=== PATIENT | female | born 1955 | race Caucasian/White ===

== ENCOUNTER 2017-12-28 12:29 | Observation (INO) | payer OTHER ==
[2017-12-28] VITALS (8 sets, daily range): BP systolic 106–146; BP diastolic 58–79; PULSE 66–100; RESP 16–60; TEMP 98–98.6; O2SAT 94–100
[~2017-12-28] VITALS: Ht 167.6 cm; Wt 105.0 kg
[~2017-12-28 12:29] MED LIST: GLUCTAB OR; LOVA1TAB47 PO; PRED20 PO; TRAD5TAB OR
[2017-12-28] MEDS ORDERED: SODIUM CHLORIDE 0.9% FLUSH 10 ML FLUSH IVF PRN (12:45)
[2017-12-28] MEDS ORDERED: ASPIRIN 81 MG CHEW TAB PO ONE (12:45)
[2017-12-28] MEDS ORDERED: GLIM1TAB PO (12:46)
[2017-12-28] MEDS ORDERED: ALPR0.5T3 PO (12:46)
[2017-12-28] MEDS ORDERED: EMPA1TAB PO (12:46)
[2017-12-28] MEDS ORDERED: METF500T PO (12:46)
[2017-12-28] MEDS ORDERED: ATOR10TA15 PO (12:46)
--- NOTE | 2017-12-28 12:51 | PD ---
HPI Chief Complaint: Chest Pain Time Seen by Provider: 12:40 Travel History International Travel<30 days: No Contact w/Intl Traveler<30days: No Traveled to known affect area: No History of Present Illness HPI 62-year-old female with history of hypertension and diabetes presents to the emergency department for evaluation of a chest tightness discomfort with associated left arm numbness and tingling. Patient states yesterday she was feeling weak. She was not quite feeling like she had as much energy as she usually does. She told me her blood pressure was running lower than typical. This seemed to resolve and she felt better. She went to work. This morning she woke up and went to work. Her blood pressure was normal. While at work she began having a chest discomfort with some left upper extremity tingling. She states now the left upper extremity feels more numb and heavy when the pressure occurs. She has no significant cardiac history that she recalls. She states there is mild shortness of breath associated with it. Last evening she was having episodes of diaphoresis. She has not been nauseous or vomiting. She has not been recently ill. She has no other symptoms to report. ON LICENSE OF [facility] Past Medical History High Cholesterol: Yes (borderline per the pt) Diabetes: Yes Patient Takes Glucophage: Yes Hypertension: Yes Influenza Vaccination: No Past Surgical History Appendectomy: Yes Social History Alcohol Use: No Tobacco Use: No Substance Use: No Allergies-Medications (Allergen,Severity, Reaction): Coded Allergies: No Known Allergies (Unverified , 09/22/12) Reported Meds & Prescriptions Reported Meds & Active Scripts Active Reported Alprazolam 0.5 Mg Tab 0.5 Mg PO HS PRN Jardiance (Empagliflozin) 10 Mg Tab 10 Mg PO DAILY Glimepiride 1 Mg Tab 1 Mg PO DAILY Take with breakfast or first main meal Atorvastatin (Atorvastatin Calcium) 10 Mg Tab 10 Mg PO Metformin (Metformin HCl) 500 Mg Tab 500 Mg PO BID With a meal Review of Systems Except as stated in HPI: all other systems reviewed are Neg Physical Exam Narrative GENERAL: Well-nourished female patient, ambulatory and in no acute distress SKIN: Focused skin assessment warm/dry. HEAD: Atraumatic. Normocephalic. EYES: Pupils equal and round. No scleral icterus. No injection or drainage. ENT: No nasal bleeding or discharge. Mucous membranes pink and moist. NECK: Trachea midline. No JVD. CARDIOVASCULAR: Regular rate and rhythm. RESPIRATORY: No accessory muscle use. Diminished bilateral bases, likely due to girth. Breath sounds equal bilaterally. GASTROINTESTINAL: Abdomen soft, non-tender, nondistended. Hepatic and splenic margins not palpable. MUSCULOSKELETAL: No obvious deformities. No clubbing. No cyanosis. No edema. NEUROLOGICAL: Awake and alert. No obvious cranial nerve deficits. Motor grossly within normal limits. Normal speech. PSYCHIATRIC: Appropriate mood and affect; insight and judgment normal. Data Data Last Documented VS Vital Signs Date Time Temp Pulse Resp B/P (MAP) Pulse Ox O2 Delivery O2 Flow Rate FiO2 12/28/17 13:22 100 16 137/63 (87) 100 Room Air 12/28/17 12:33 98.6 Orders Orders Electrocardiogram (12/28/17 12:44) Basic Metabolic Panel (Bmp) (12/28/17 12:44) Ckmb (Isoenzyme) Profile (12/28/17 12:44) Complete Blood Count With Diff (12/28/17 12:44) Magnesium (Mg) (12/28/17 12:44) Prothrombin Time / Inr (Pt) (12/28/17 12:44) Act Partial Throm Time (Ptt) (12/28/17 12:44) Troponin I (12/28/17 12:44) Chest, Single Ap (12/28/17 12:44) Ecg Monitoring (12/28/17 12:44) Bilateral Bp Monitoring (12/28/17 12:44) Iv Access Insert/Monitor (12/28/17 12:44) Oximetry (12/28/17 12:44) Oxygen Administration (12/28/17 12:44) Aspirin Chew (Aspirin Chew) (12/28/17 12:45) Sodium Chloride 0.9% Flush (Ns Flush) (12/28/17 12:45) Nitroglycerin Sl (Nitrostat Sl) (12/28/17 12:45) CKMB (12/28/17 12:55) CKMB% (12/28/17 12:55) Labs Laboratory Tests Test 12/28/17 12:55 White Blood Count 9.6 TH/MM3 Red Blood Count 5.18 MIL/MM3 Hemoglobin 16.5 GM/DL Hematocrit 48.2 % Mean Corpuscular Volume 93.2 FL Mean Corpuscular Hemoglobin 31.8 PG Mean Corpuscular Hemoglobin Concent 34.1 % Red Cell Distribution Width 12.9 % Platelet Count 272 TH/MM3 Mean Platelet Volume 8.4 FL Neutrophils (%) (Auto) 66.5 % Lymphocytes (%) (Auto) 22.9 % Monocytes (%) (Auto) 6.6 % Eosinophils (%) (Auto) 3.2 % Basophils (%) (Auto) 0.8 % Neutrophils # (Auto) 6.4 TH/MM3 Lymphocytes # (Auto) 2.2 TH/MM3 Monocytes # (Auto) 0.6 TH/MM3 Eosinophils # (Auto) 0.3 TH/MM3 Basophils # (Auto) 0.1 TH/MM3 CBC Comment DIFF FINAL Differential Comment Prothrombin Time 9.9 SEC Prothromb Time International Ratio 1.0 RATIO Activated Partial Thromboplast Time 25.9 SEC Blood Urea Nitrogen 23 MG/DL Creatinine 1.29 MG/DL Random Glucose 194 MG/DL Calcium Level 10.2 MG/DL Magnesium Level 1.9 MG/DL Sodium Level 139 MEQ/L Potassium Level 4.3 MEQ/L Chloride Level 103 MEQ/L Carbon Dioxide Level 25.2 MEQ/L Anion Gap 11 MEQ/L Estimat Glomerular Filtration Rate 42 ML/MIN Total Creatine Kinase 111 U/L Creatine Kinase MB 3.3 NG/ML Troponin I LESS THAN 0.02 NG/ML MDM Medical Decision Making Medical Screen Exam Complete: Yes Emergency Medical Condition: Yes Medical Record Reviewed: Yes Differential Diagnosis ACS versus anxiety versus chest wall pain versus pleuritic pain versus bronchospasm Narrative Course 62-year-old female presents emergency department for evaluation of a chest discomfort/tightness with associated shortness of breath and left upper extremity tingling. Patient appears nontoxic. She appears without distress. Her vital signs are stable. EKG is reviewed by my attending physician without any acute ST elevation or depression. Laboratory Tests Test 12/28/17 12:55 White Blood Count 9.6 TH/MM3 Red Blood Count 5.18 MIL/MM3 Hemoglobin 16.5 GM/DL Hematocrit 48.2 % Mean Corpuscular Volume 93.2 FL Mean Corpuscular Hemoglobin 31.8 PG Mean Corpuscular Hemoglobin Concent 34.1 % Red Cell Distribution Width 12.9 % Platelet Count 272 TH/MM3 Mean Platelet Volume 8.4 FL Neutrophils (%) (Auto) 66.5 % Lymphocytes (%) (Auto) 22.9 % Monocytes (%) (Auto) 6.6 % Eosinophils (%) (Auto) 3.2 % Basophils (%) (Auto) 0.8 % Neutrophils # (Auto) 6.4 TH/MM3 Lymphocytes # (Auto) 2.2 TH/MM3 Monocytes # (Auto) 0.6 TH/MM3 Eosinophils # (Auto) 0.3 TH/MM3 Basophils # (Auto) 0.1 TH/MM3 CBC Comment DIFF FINAL Differential Comment Prothrombin Time 9.9 SEC Prothromb Time International Ratio 1.0 RATIO Activated Partial Thromboplast Time 25.9 SEC Blood Urea Nitrogen 23 MG/DL Creatinine 1.29 MG/DL Random Glucose 194 MG/DL Calcium Level 10.2 MG/DL Magnesium Level 1.9 MG/DL Sodium Level 139 MEQ/L Potassium Level 4.3 MEQ/L Chloride Level 103 MEQ/L Carbon Dioxide Level 25.2 MEQ/L Anion Gap 11 MEQ/L Estimat Glomerular Filtration Rate 42 ML/MIN Total Creatine Kinase 111 U/L Creatine Kinase MB 3.3 NG/ML Troponin I LESS THAN 0.02 NG/ML Last Impressions Chest X-Ray 12/28/17 1244 Signed Impressions: Service Date/Time: Thursday, December 28, 2017 13:35 - CONCLUSION: 1. No acute cardiopulmonary disease. Jay Yañez MD Findings are reviewed and discussed with my attending physician. We feel it is in the patient's best interest to be admitted observation to the chest pain center. Plan was discussed with the patient. She is in agreement with this plan of care. Diagnosis Primary Impression: Chest discomfort Admitting Information Admitting Physician Requests: Observation Condition: Stable Radha Lubin December 28, 2017 12:51
[2017-12-28] MEDS: NITROGLYCERIN 0.4 MG SL 25 TABS/BTL SL SCH ×3 (13:01→13:23)
[2017-12-28 13:20] LABS: AUTOMATED NEUTROPHIL # 6.4 TH/MM3 (1.8-7.7); BASOPHIL # 0.1 TH/MM3 (0-0.2); BASOPHIL % 0.8 % (0.0-2.0); EOSINOPHIL # 0.3 TH/MM3 (0-0.4); EOSINOPHIL % 3.2 % (0.0-4.0); HEMATOCRIT 48.2 % (35.0-46.0); HEMOGLOBIN 16.5 GM/DL (11.6-15.3); LYMPH % 22.9 % (9.0-44.0); LYMPHOCYTE # 2.2 TH/MM3 (1.0-4.8); MEAN CELL VOLUME 93.2 FL (80.0-100.0); MEAN CORPUSCULAR HEMOGLOBIN 31.8 PG (27.0-34.0); MEAN CORPUSCULAR HGB CONC 34.1 % (32.0-36.0); MEAN PLATELET VOLUME 8.4 FL (7.0-11.0); MONO % 6.6 % (0.0-8.0); MONOCYTE # 0.6 TH/MM3 (0-0.9); NEUT % 66.5 % (16.0-70.0); PLATELET COUNT 272 TH/MM3 (150-450); RED BLOOD COUNT 5.18 MIL/MM3 (4.00-5.30); RED CELL DISTRIBUTION WIDTH 12.9 % (11.6-17.2); WHITE BLOOD COUNT 9.6 TH/MM3 (4.0-11.0)
[2017-12-28 13:33] LABS: PROTHROMBIN TIME - PATIENT 9.9 SEC (9.8-11.6)
[2017-12-28 13:48] LABS: TROPONIN I LESS THAN 0.02 NG/ML (0.02-0.05)
[2017-12-28 14:09] LABS: BICARBONATE 25.2 MEQ/L (21.0-32.0); BLOOD UREA NITROGEN 23 MG/DL (7-18); CALCIUM 10.2 MG/DL (8.5-10.1); CHLORIDE 103 MEQ/L (98-107); CREATININE 1.29 MG/DL (0.50-1.00); GLOMERULAR FILTRATION RATE 42 ML/MIN (>89); GLUCOSE,RANDOM 194 MG/DL (74-106); MAGNESIUM 1.9 MG/DL (1.5-2.5); SODIUM (NA) 139 MEQ/L (136-145)
--- NOTE | 2017-12-28 14:17 | RADRPT ---
EXAM DATE/TIME: 12/28/2017 13:35 [facility] COMPARISON: No previous studies available for comparison. INDICATIONS : Chest pain and tightness. MEDICAL HISTORY : Hypertension. Diabetes. SURGICAL HISTORY : Total Knee. ENCOUNTER: Initial ACUITY: 1 day PAIN SCORE: 5/10 LOCATION: Bilateral chest FINDINGS: A single view of the chest demonstrates the lungs to be symmetrically aerated without evidence of mas s, infiltrate or effusion. The cardiomediastinal contours are unremarkable. Osseous structures are intact. CONCLUSION: 1. No acute cardiopulmonary disease. Jay Yañez MD on December 28, 2017 at 14:14 Board Certified Radiologist. This report was verified electronically.
[2017-12-28] MEDS ORDERED: NITROGLYCERIN 0.4 MG SL 25 TABS/BTL SL PRN (15:00)
[2017-12-28] MEDS ORDERED: ACETAMINOPHEN 500 MG CPLT PO PRN (15:00)
[2017-12-28] MEDS ORDERED: ONDANSETRON ODT 4 MG TAB PO PRN (15:00)
--- NOTE | 2017-12-28 16:08 | HHI.HP ---
HPI Primary Care Physician Diomedes Hamm M.D. Chief Complaint Chest tightness History of Present Illness 62-year-old female with history of type 2 diabetes and hypertension presents emergency room for further evaluation of nonexertional chest tightness. Onset last 3-4 weeks, seems to be increasing in intensity and frequency. Most recent episode midmorning. Location left anterior chest. Characterized as tightness. No radiation. Moderate in severity. No associated symptoms of nausea, vomiting , or diaphoresis. Endorses "shallow breathing" due to taking deep breath made pain worse. Today's chest tightness duration one hour, reporting other episodes sometimes last 3-4 hours. No known precipitating or relieving factors. Denies similar pain in the past. Due to severity of today's episode, called her insurance RN community support professional for advice and was directed to go to ER. Currently chest pain free. Given total 3 doses of Nitro SL in ER. First nitro "eased off discomfort almost completely." Given total of 3 dosing reporting 15 minutes after last nitro given chest tightness resolved, denying immediate relief. Review of Systems General: No fatigue,weakness, fever, chills, recent illness, or change in appetite. Has been her general state of health. HEENT: No PIERRE, no vision changes, no nasal congestion or drainage, no dysphasia or history of GERD CV: As stated above. No current chest tightness. RESP: No SOB, cough, wheeze, or history of asthma GI: No nausea, vomiting, bowel changes, diarrhea, constipation, pain, distention , melena, or blood in the stool. : No dysuria, urgency, frequency, frequent UTIs, or history of kidney stones EXT: No lower leg edema, no paraesthesias MS: Chronic hip pain, stable and change, no recent injury, or change in ROM NEURO: No change in memory, dizziness, difficulty with balance, LOC, motor/ sensory deficits PSYCH: No anxiety or depression. Increased situational stress, owns her own business. SKIN: No rashes, no concerning lesions Past Family Social History Allergies: Coded Allergies: No Known Allergies (Unverified Allergy, Unknown, 12/28/17) Past Medical History Type 2 diabetes, hypertension Past Surgical History Appendectomy, right knee surgery Reported Medications Reported Meds & Active Scripts Active Reported Alprazolam 0.5 Mg Tab 0.5 Mg PO HS PRN Jardiance (Empagliflozin) 10 Mg Tab 10 Mg PO DAILY Glimepiride 1 Mg Tab 1 Mg PO DAILY Take with breakfast or first main meal Atorvastatin (Atorvastatin Calcium) 10 Mg Tab 10 Mg PO Metformin (Metformin HCl) 500 Mg Tab 500 Mg PO BID With a meal Active Ordered Medications Current Medications Medications (Trade) Dose Ordered Sig/Rony Route Start Time Stop Time Status Last Admin (NS Flush) 2 ml UNSCH PRN IVF 12/28/17 12:45 (NS Flush) 2 ml BID IV FLUSH 12/28/17 21:00 (Tylenol) 500 mg Q4H PRN PO 12/28/17 15:00 (Zofran Odt) 4 mg Q6H PRN PO 12/28/17 15:00 (Nitrostat Sl) 0.4 mg Q5M PRN SL 12/28/17 15:00 (Aspirin) 325 mg DAILY PO 12/29/17 09:00 Family History Father diagnoses with CAD in late 50s, required CABG in 60s. Mother from Autumn Gehrig's disease age 52. Sister ulcerative colitis. 3 brothers, one brother had a MD age 73. Social History Known diabetes and hypertension. Appropriately taking statin therapy for diagnosis of diabetes. No known coronary artery disease. Lifelong non-smoker. Denies any alcohol use. . 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 Past Cardiac testing None Physical Exam Vital Signs Vital Signs Date Time Temp Pulse Resp B/P (MAP) Pulse Ox O2 Delivery O2 Flow Rate FiO2 12/28/17 13:22 100 16 137/63 (87) 100 Room Air 12/28/17 13:10 17 12/28/17 12:52 97 17 146/76 (99) 97 Room Air 137/79 (98) 12/28/17 12:33 98.6 95 16 129/70 (89) 96 Physical Exam GENERAL: Alert WN, WD, NAD, pleasant, obese, elderly female HEAD: NC, AT EYES: Sclera clear, conjunctiva without injection, pupils equal and round ENT: Mucous membranes pink and moist CV: RRR, without murmur, rub, gallop, no JVD, S1-S2 no S3-S4. No carotid bruits. Chest wall nontender with palpation. RESP: Clear lungs throughout bilateral, no crackles, wheeze, rhonchi, symmetrical chest rise, nonlabored, able to speak in full sentences ABD: Soft, NT, ND, no masses, positive bowel tones EXT: Pulses +2x4, no dependent edema MS: Normal tone -4 extremities, nontender, no obvious deformities, full range of motion NEURO: CN II through CN XII grossly intact, motor strength 5/5 PSYCH: A+O x3, pleasant affect, appropriate speech, mood, insight and judgment SKIN: Normal turgor, normal texture, no lesions, no rashes, brisk cap refill, even hair distribution Laboratory Laboratory Tests Test 12/28/17 12:55 White Blood Count 9.6 Red Blood Count 5.18 Hemoglobin 16.5 Hematocrit 48.2 Mean Corpuscular Volume 93.2 Mean Corpuscular Hemoglobin 31.8 Mean Corpuscular Hemoglobin Concent 34.1 Red Cell Distribution Width 12.9 Platelet Count 272 Mean Platelet Volume 8.4 Neutrophils (%) (Auto) 66.5 Lymphocytes (%) (Auto) 22.9 Monocytes (%) (Auto) 6.6 Eosinophils (%) (Auto) 3.2 Basophils (%) (Auto) 0.8 Neutrophils # (Auto) 6.4 Lymphocytes # (Auto) 2.2 Monocytes # (Auto) 0.6 Eosinophils # (Auto) 0.3 Basophils # (Auto) 0.1 CBC Comment DIFF FINAL Differential Comment Prothrombin Time 9.9 Prothromb Time International Ratio 1.0 Activated Partial Thromboplast Time 25.9 Blood Urea Nitrogen 23 Creatinine 1.29 Random Glucose 194 Calcium Level 10.2 Magnesium Level 1.9 Sodium Level 139 Potassium Level 4.3 Chloride Level 103 Carbon Dioxide Level 25.2 Anion Gap 11 Estimat Glomerular Filtration Rate 42 Total Creatine Kinase 111 Creatine Kinase MB 3.3 Troponin I LESS THAN 0.02 Result Diagram: 12/28/17 1255 12/28/17 1255 Imaging Last 48 hours Impressions Chest X-Ray 12/28/17 1244 Signed Impressions: Service Date/Time: Thursday, December 28, 2017 13:35 - CONCLUSION: 1. No acute cardiopulmonary disease. Jay Yañez MD Course EKG Normal sinus rhythm, no ST-T segment changes Caprini VTE Risk Assessment Caprini VTE Risk Assessment: Mod/High Risk (score >= 2) Caprini Risk Assessment Model Point Value = 1 Point Value = 2 Point Value = 3 Point Value = 5 Age 41-60 Minor surgery BMI > 25 kg/m2 Swollen legs Varicose veins or History of unexplained or recurrent spontaneous Oral contraceptives or hormone replacement Sepsis (< 1 month) Serious lung disease, including pneumonia (< 1 month) Abnormal pulmonary function Acute myocardial infarction Congestive heart failure (< 1 month) History of inflammatory bowel disease Medical patient at bed rest Age 61-74 Arthroscopic surgery Major open surgery (> 45 min) Laparoscopic surgery (> 45 min) Malignancy Confined to bed (> 72 hours) Immobilizing plaster cast Central venous access Age >= 75 History of VTE Family history of VTE Factor V Leiden Prothrombin [id number] Lupus anticoagulant Anticardiolipin antibodies Elevated serum homocysteine Heparin-induced thrombocytopenia Other congenital or acquired thrombophilia Stroke (< 1 month) Elective arthroplasty Hip, pelvis, or leg fracture Acute spinal cord injury (< 1 month) Prophylaxis Regimen Total Risk Factor Score Risk Level Prophylaxis Regimen 0-1 Low Early ambulation 2 Moderate Order ONE of the following: *Sequential Compression Device (SCD) *Heparin 5000 units SQ BID 3-4 Higher Order ONE of the following medications: *Heparin 5000 units SQ TID *Enoxaparin/Lovenox 40 mg SQ daily (WT < 150 kg, CrCl > 30 mL/min) *Enoxaparin/Lovenox 30 mg SQ daily (WT < 150 kg, CrCl > 10-29 mL/min) *Enoxaparin/Lovenox 30 mg SQ BID (WT < 150 kg, CrCl > 30 mL/min) AND/OR *Sequential Compression Device (SCD) 5 or more Highest Order ONE of the following medications: *Heparin 5000 units SQ TID (Preferred with Epidurals) *Enoxaparin/Lovenox 40 mg SQ daily (WT < 150 kg, CrCl > 30 mL/min) *Enoxaparin/Lovenox 30 mg SQ daily (WT < 150 kg, CrCl > 10-29 mL/min) *Enoxaparin/Lovenox 30 mg SQ BID (WT < 150 kg, CrCl > 30 mL/min) AND *Sequential Compression Device (SCD) Assessment and Plan Assessment and Plan #1 Chest pain-admitted chest pain center. Rule out ACS with 3 sets of EKGs and cardiac enzymes. Monitor on telemetry overnight. Will be seen and evaluated by Dr. Girish Arnold a.m. Further disposition to follow. Discussed cardiac stress testing tomorrow, if ACS ruled out overnight. Patient verbalized understanding and agreeable to plan of care. #2 History of type II diabetes-hold oral anti-glycemic's, SSI low dose coverage #3 History of hypertension-continue Losartan once updated in reconciled medications Esther Mota December 28, 2017 16:08
[2017-12-28] MEDS ORDERED: ALPRAZolam 0.5 MG TAB PO PRN (16:15)
[2017-12-28] MEDS ORDERED: DEXTROSE 50% IN WATER 50 ML VIAL(D50) IV PUSH PRN (16:30)
[2017-12-28] MEDS ORDERED: GLUCAGON 1 MG/ML VIAL OTHER PRN (16:30)
[2017-12-28] MEDS: INSULIN ASPART SUPPLEMENTAL SCALE SQ SCH ×2 (17:00→21:46)
[2017-12-28 17:03] LABS: TROPONIN I LESS THAN 0.02 NG/ML (0.02-0.05)
[2017-12-28] MEDS ORDERED: LOSA100T PO (17:19)
[2017-12-28 19:11] LABS: TROPONIN I LESS THAN 0.02 NG/ML (0.02-0.05)
[2017-12-28] MEDS: SODIUM CHLORIDE 0.9% FLUSH 10 ML FLUSH IV FLUSH SCH (20:30)
[2017-12-29 03:35] VITALS: BP 105/60; PULSE 68; RESP 18; TEMP 97.5; O2SAT 96
[2017-12-29 07:02] VITALS: PULSE 69
[2017-12-29 07:50] VITALS: BP 127/73; PULSE 65; RESP 20; TEMP 96.9; O2SAT 95
[2017-12-29] MEDS: INSULIN ASPART SUPPLEMENTAL SCALE SQ SCH ×2 (08:04→14:30)
--- NOTE | 2017-12-29 08:17 | PD.CARD.PN ---
Subjective Subjective Remarks No complaints, no further chest tightness episodes Objective Medications Current Medications Medications (Trade) Dose Ordered Sig/Rony Route Start Time Stop Time Status Last Admin (NS Flush) 2 ml UNSCH PRN IVF 12/28/17 12:45 (NS Flush) 2 ml BID IV FLUSH 12/28/17 21:00 (Tylenol) 500 mg Q4H PRN PO 12/28/17 15:00 (Zofran Odt) 4 mg Q6H PRN PO 12/28/17 15:00 (Nitrostat Sl) 0.4 mg Q5M PRN SL 12/28/17 15:00 (Aspirin) 325 mg DAILY PO 12/29/17 09:00 (Xanax) 0.5 mg HS PRN PO 12/28/17 16:15 (D50w (Vial) Inj) 50 ml UNSCH PRN IV PUSH 12/28/17 16:30 (Glucagon Inj) 1 mg UNSCH PRN OTHER 12/28/17 16:30 (NovoLOG SUPPLEMENTAL SCALE) 1 ACHS SLIDING SCALE SQ 12/28/17 17:00 12/29/17 08:04 (Cozaar) 100 mg DAILY PO 12/29/17 09:00 Vital Signs / I&O Vital Signs Date Time Temp Pulse Resp B/P (MAP) Pulse Ox O2 Delivery O2 Flow Rate FiO2 12/29/17 07:02 69 12/29/17 03:35 97.5 68 18 105/60 (75) 96 12/28/17 23:38 98.2 70 18 134/60 (84) 95 12/28/17 23:00 69 12/28/17 19:53 98.3 74 18 115/58 (77) 94 12/28/17 17:55 66 12/28/17 17:12 98.0 79 16 106/60 (75) 96 12/28/17 16:39 12/28/17 13:22 100 16 137/63 (87) 100 Room Air 12/28/17 13:10 17 12/28/17 12:52 97 17 146/76 (99) 97 Room Air 137/79 (98) 12/28/17 12:33 98.6 95 16 129/70 (89) 96 Physical Exam GENERAL: Alert WN, WD, NAD, pleasant, obese female HEAD: NC, AT CV: RRR, without murmur, rub, gallop, no JVD, S1-S2 no S3-S4. RESP: Clear lungs throughout bilateral, no crackles, wheeze, rhonchi, symmetrical chest rise, nonlabored, able to speak in full sentences ABD: Soft, NT, ND, no masses, positive bowel tones PSYCH: A+O x3, pleasant affect, appropriate speech, mood, insight and judgment SKIN: Normal turgor, normal texture Laboratory Laboratory Tests Test 12/28/17 12:55 12/28/17 16:00 12/28/17 18:45 White Blood Count 9.6 TH/MM3 Red Blood Count 5.18 MIL/MM3 Hemoglobin 16.5 GM/DL Hematocrit 48.2 % Mean Corpuscular Volume 93.2 FL Mean Corpuscular Hemoglobin 31.8 PG Mean Corpuscular Hemoglobin Concent 34.1 % Red Cell Distribution Width 12.9 % Platelet Count 272 TH/MM3 Mean Platelet Volume 8.4 FL Neutrophils (%) (Auto) 66.5 % Lymphocytes (%) (Auto) 22.9 % Monocytes (%) (Auto) 6.6 % Eosinophils (%) (Auto) 3.2 % Basophils (%) (Auto) 0.8 % Neutrophils # (Auto) 6.4 TH/MM3 Lymphocytes # (Auto) 2.2 TH/MM3 Monocytes # (Auto) 0.6 TH/MM3 Eosinophils # (Auto) 0.3 TH/MM3 Basophils # (Auto) 0.1 TH/MM3 CBC Comment DIFF FINAL Differential Comment Prothrombin Time 9.9 SEC Prothromb Time International Ratio 1.0 RATIO Activated Partial Thromboplast Time 25.9 SEC Blood Urea Nitrogen 23 MG/DL Creatinine 1.29 MG/DL Random Glucose 194 MG/DL Calcium Level 10.2 MG/DL Magnesium Level 1.9 MG/DL Sodium Level 139 MEQ/L Potassium Level 4.3 MEQ/L Chloride Level 103 MEQ/L Carbon Dioxide Level 25.2 MEQ/L Anion Gap 11 MEQ/L Estimat Glomerular Filtration Rate 42 ML/MIN Total Creatine Kinase 111 U/L 77 U/L 78 U/L Creatine Kinase MB 3.3 NG/ML Troponin I LESS THAN 0.02 NG/ML LESS THAN 0.02 NG/ML LESS THAN 0.02 NG/ML Imaging Last 24 hours Impressions Chest X-Ray 12/28/17 1244 Signed Impressions: Service Date/Time: Thursday, December 28, 2017 13:35 - CONCLUSION: 1. No acute cardiopulmonary disease. Jay Yañez MD Assessment and Plan Assessment and Plan #1 Chest pain-admitted chest pain center. ACS ruled out with 3 sets of EKGs and cardiac enzymes. Monitored on telemetry overnight. Seen and evaluated by Dr. Alva. Proceed with Nuclear treadmill. If unremarkable, plans to discharge home with follow up with PCP. #2 History of diabetes-continue SSI, continue home medications upon discharge Esther Mota December 29, 2017 08:17
[2017-12-29 08:42] VITALS: O2SAT 96
[2017-12-29] MEDS ORDERED: ASPIRIN 325 MG TAB PO SCH (09:00)
[2017-12-29] MEDS ORDERED: LOSARTAN 50 MG TAB PO SCH (09:00)
[2017-12-29] MEDS: SODIUM CHLORIDE 0.9% FLUSH 10 ML FLUSH IV FLUSH SCH (09:04)
--- NOTE | 2017-12-29 12:47 | EKG ---
Date Performed: 12/28/2017 Time Performed: 18:46:15 PTAGE: 62 years EKG: Sinus rhythm NORMAL ECG PREVIOUS TRACING : 12/28/2017 16.09 Since previous tracing, no significant change noted DOCTOR: Girish Alva Interpretating Date/Time 12/29/2017 12:47:04
--- NOTE | 2017-12-29 12:52 | EKG ---
Date Performed: 12/28/2017 Time Performed: 12:48:10 PTAGE: 62 years EKG: Sinus rhythm BORDERLINE LEFT AXIS DEVIATION LOW QRS VOLTAGE IN PRECORDIAL LEADS BORDERLINE ECG NO PREVIOUS TRACING DOCTOR: Girish Alva Interpretating Date/Time 12/29/2017 12:50:37
--- NOTE | 2017-12-29 12:52 | EKG ---
Date Performed: 12/28/2017 Time Performed: 16:09:47 PTAGE: 62 years EKG: Sinus rhythm LOW QRS VOLTAGE IN PRECORDIAL LEADS BORDERLINE ECG PREVIOUS TRACING : 12/28/2017 12.48 Since previous tracing, no significant change noted DOCTOR: Girish Alva Interpretating Date/Time 12/29/2017 12:49:09
--- NOTE | 2017-12-29 13:49 | RADRPT ---
EXAM DATE/TIME: 12/29/2017 10:50 [facility] COMPARISON: No previous studies available for comparison. INDICATIONS : Chest pain on and off for 3 weeks. Angina DOSE: 35.0 mCi Tc99m Myoview at stress 11.0 mCi Tc99m Myoview at rest REST HEART RATE: 89 BPM TARGET HEART RATE: 134 BPM MAX HEART RATE: 139 BPM REST BLOOD PRESSURE: 116/82 mmHg MAX BLOOD PRESSURE: 128/82 mmHg EJECTION FRACTION: 68% MEDICAL HISTORY : Hypertension. Diabetes mellitus type 2. SURGICAL HISTORY : Total knee replacement, right. Appendectomy. ENCOUNTER: Initial ACUITY: 2 days PAIN SCALE: 0/10 LOCATION: Bilateral chest TECHNIQUE: The patient underwent upright treadmill exercise in the chest pain center. Continuous ECG tracing wa s monitored during stress. Gated SPECT imaging was performed after stress, and conventional SPECT im aging was performed at rest. The examination was performed on a SPECT/CT scanner, both attenuation-c orrected and non-corrected datasets were reviewed. FINDINGS: DISTRIBUTION: The maximum perfused segment at stress is in the anterior wall. PERFUSION STUDY: The pattern of perfusion at stress is within normal limits with regional variations perfusion at stre ss than 20%. No evidence of redistribution. The summed stress score history. GATED STUDY: There is intact wall motion and thickening without hypokinetic or dyskinetic segments. CONCLUSION: 1. No evidence of stress-induced ischemia. 2. Intact wall motion with 68% ejection fraction. RISK CATEGORY: Low (<1% Annual Mortality Rate) Ankush Garvin MD on December 29, 2017 at 13:45 Board Certified Radiologist. This report was verified electronically.
[2017-12-29 13:53] VITALS: BP 132/74; PULSE 80; RESP 20; TEMP 97.2; O2SAT 97
--- NOTE | 2017-12-29 13:53 | HHI.DCPOC ---
Discharge Care Plan Diagnosis: (1) Atypical chest pain (2) Hypertension (3) Type 2 diabetes mellitus (4) Situational stress Goals to Promote Your Health * To prevent worsening of your condition and complications * To maintain your health at the optimal level Directions to Meet Your Goals Take your medications as prescribed Follow your dietary instruction Follow activity as directed Keep your appointments as scheduled Take your immunizations and boosters as scheduled If your symptoms worsen call your PCP, if no PCP go to Urgent Care Center or Emergency Room Smoking is Dangerous to Your Health. Avoid second hand smoke Call the 24-hour hour crisis hotline for domestic abuse at Esther Mota December 29, 2017 13:53
--- NOTE | 2017-12-29 13:59 | TR ---
Date Performed: 12/29/2017 Time Performed: 12:29:40 DOCTOR: Girish Alva DRUG LIST: CLINICAL HISTORY: REASON FOR TEST: Chest pain REASON FOR ENDING: OBSERVATION: CONCLUSION: Junior protocol completed. Stopped sec to reaching target heart rate and leg fatigue. Maximum GM=576 Target HR Achieved=88.0% Maximum NH=231/82 Total Exercise Time=5:17. No reprod chest discomfort. Infrequent PVC. No st t segment changes. Good exercise tolerance. Normal bp response. Rec overy quick and unremarkable. Nuclear images pending. COMMENTS: Conclusion: Normal treadmill exercise. No evidence of ischemia.
[2017-12-29 15:25] VITALS: PULSE 53
== END 2017-12-29 15:33 | disposition home or self-care (01) ==
LOC: NEPC 12:29 → NEDA 14:29 → NEPFCDU 16:59
DX: R07.89 Other chest pain (principal); I10 Essential (primary) hypertension; E11.9 Type 2 diabetes mellitus without complications; R20.0 Anesthesia of skin; R20.2 Paresthesia of skin; R53.1 Weakness; R06.02 Shortness of breath; R61 Generalized hyperhidrosis; Z79.84 Long term (current) use of oral hypoglycemic drugs
CPT/HCPCS: 71045; 78452; 80048; 82550; 82552; 82948; 83735; 84484; 85025; 85610; 85730; 93005; 93017; 99285; A9502; G0378; J1815